=== PATIENT | male | born 1950 | race Caucasian/White ===

== ENCOUNTER → 2023-05-23 13:25 | Outpatient (CLI) | payer MEDICARE, OTHER, SELFPAY ==
--- NOTE | 2023-05-23 13:28 | DI.US.S_ITS ---
PROCEDURE: US ABDOMEN LIMITED INDICATIONS: Right Inguinal pain TECHNIQUE: Real-time focused scanning was performed of the abdomen, with image documentation. COMPARISON: None. FINDINGS: Focused ultrasound examination of right lower quadrant abdomen/inguinal region shows surgical mesh at the site of prior inguinal hernia repair. There is a small hernia involving right lower quadrant abdominal wall immediately superior to the surgical mesh measures 7.1 cm in with. Suggestion of bowel loops seen extending into herniation sac and is compressible. IMPRESSION: Prior inguinal hernia repair. Anterior abdominal wall defect immediately above the site of hernia repair with herniation sac containing bowel loops and mesenteric fat. No gross peritoneal free fluid. No discrete soft tissue mass. Dictated by: Figueroa Mo M.D. on 05/23/2023 at 16:51 Approved by: Figueroa Mo M.D. on 05/23/2023 at 16:53
== END ==
PROVIDERS: Family Provider Specialist; PCP Family Medicine; Referring Provider Physician Assistant; Visit Provider Physician Assistant
DX: K43.2 Incisional hernia without obstruction or gangrene (principal); R10.31 Right lower quadrant pain; Z87.19 Personal history of other diseases of the digestive system; Z98.890 Other specified postprocedural states
CPT/HCPCS: 76705

== ENCOUNTER 2023-07-03 07:36 | Day surgery (SDC) | payer MEDICARE, OTHER, SELFPAY ==
[2023-06-27 12:02] VITALS: BMI 22.7
[2023-07-03] VITALS (9 sets, daily range): BP systolic 112–144; BP diastolic 53–69; PULSE 54–65; RESP 12–18; TEMP 36.3–36.9; O2SAT 96–99; BMI 22.1
[2023-07-03] MEDS: LACTATED RINGERS 1,000 ML 42 ML IV (08:36)
--- NOTE | 2023-07-03 08:44 | PM.PREOP ---
Pre-operative Note COVID-19 COVID-19 status: Not tested Interval Note History & Physical reviewed/Exam performed by Physician: Yes Changes to H&P: No ASA Class (for procedural sedation): II
[2023-07-03] MEDS: CEFAZOLIN 2 GM/100 ML PREMIX 100 ML IV (09:27)
--- NOTE | 2023-07-03 09:36 | SUR.OPER ---
Supine on padded OR bed, head on pillow, arms padded and tucked at sides, legs uncrossed, safety belt at thigh, tape over blanket over lower legs .
[2023-07-03] MEDS: BUPIVACAINE 0.5% (PF) 30 ML, EPINEPHrine 0.15 MG INJ (09:52)
--- NOTE | 2023-07-03 10:39 | PM.OP.1 ---
Operative Date/Time/Diagnoses Date of procedure: 07/03/23 Time of procedure: 10:39 Pre-op diagnosis: Recurrent right inguinal hernia Post-op diagnosis: same Procedure & Clinicians Procedure: Laparoscopic recurrent right inguinal hernia repair with mesh Same procedure as scheduled: Yes Surgeon: Doron Gibson Anesthesia Type: General Operative Notes Procedure in detail: The patient was given preoperative antibiotics. The patient was brought to the operating room, placed on the table in the supine position with the arms tucked and general anesthesia was induced. The abdomen was prepped and draped in the usual fashion. A time-out was performed. A 1 cm supraumbilical incision was created and dissection was carried down to the anterior sheath. The fascia was scored transversely with cautery. The inferior leaf of the fascia was grasped with a Senait clamp to elevate abdominal wall and a Peon clamp was used to dawkins the peritoneum. The Lucretia port was placed and the abdomen was insufflated to 15 mmHg. The camera was inserted, there was no evidence of any injury from the entry. There was a mesh plug visible in the right direct space. 5 mm ports were placed under direct vision in the mid left and mid right abdomen. The patient was positioned in steep Trendelenburg. We created right peritoneal flap. The peritoneum was dissected off the right cord structures and from the mesh. This did result in a rather large defect in the peritoneal flap over the mesh. A large right Bard mesh was brought in and placed over the defect with the medial edge against Vini's ligament. We then closed the peritoneal flap with a running 3-0 barbed suture taking care to incorporate the large defect that had been over the old plug. We took one last look around the abdomen and saw no other abnormalities. The suture was removed and accounted for. The 5 mm ports were removed under direct vision. The abdomen was desufflated. The Lucretia port was removed. Additional local was injected into the fascia and the fascial incision was closed with 2 interrupted 0 Vicryl sutures. The skin incisions were closed with 4 Monocryl, Steri-Strips and Band-Aids. Post-operative Condition: stable Disposition: PACU
[2023-07-03] MEDS: ACETAMINOPHEN IV 1,000 MG/100 ML VIAL 400 MG IV (10:56)
[2023-07-03] MEDS: ONDANSETRON 4 MG/2 ML INJ IV (10:59)
[2023-07-03] MEDS: HYDROMORPHONE 1 MG INJ IV (11:07)
[2023-07-03] MEDS: OXYCODONE IR 5 MG TABLET PO (11:16)
== END 2023-07-03 12:05 | disposition home or self-care (01) ==
PROVIDERS: Family Provider Specialist; PCP Family Medicine; Referring Provider Surgery; Visit Provider Surgery
PROC: 0YQ54ZZ Repair Right Inguinal Region, Percutaneous Endoscopic Approach (ICD-10-PCS; CPT 49651; principal; 2023-07-03 09:15)
DX: K40.91 Unilateral inguinal hernia, without obstruction or gangrene, recurrent (principal)
CPT/HCPCS: 49651; J0136; J0171; J0690; J1100; J1170; J2405; J2704; J3010

== ENCOUNTER → 2023-09-19 10:51 | Outpatient (CLI) | payer MEDICARE, OTHER, SELFPAY ==
--- NOTE | 2023-09-19 10:52 | DI.CT.S_ITS ---
PROCEDURE: CT ABDOMEN PELVIS WO CON INDICATIONS: right groin pain s/p bilateral inguinal hernia repair TECHNIQUE: Axial sections were acquired from the lung bases to the pubic symphysis. Coronal and sagittal reformats were performed. For radiation dose reduction, the following was used: automated exposure control, adjustment of mA and/or kV according to patient size. COMPARISON: [facility], , ABDOMEN LIMITED, 05/23/2023, 13:50. FINDINGS: Image quality: Diagnostic. Lower Chest: No significant findings. URINARY: Right Kidney: No stones or hydronephrosis. Right Ureter: No hydroureter. Left Kidney: No stones or hydronephrosis. Left Ureter: No hydroureter. Bladder: Decompressed. No stones. ABDOMEN: Liver: No contour-deforming solid mass. Gallbladder: Decompressed. No stones. Biliary ducts: No biliary dilation. Pancreas: No ductal dilation. Spleen: Size is within normal limits. Adrenal Glands: No adrenal nodules. Stomach and Bowel: Normal colonic caliber, without significant wall thickening. Diverticulosis. Normal appendix. Peritoneum: No abnormal intraperitoneal fluid. No free air. Ventral Wall: Question tiny fat containing periumbilical hernia. Abdominal Nodes: No enlarged retroperitoneal or mesenteric lymph nodes. Vessels: Aorta and inferior vena cava are normal in size. Mild to moderate calcified plaque. PELVIS: Pelvic Organs: Unremarkable. Pelvic Nodes: Unremarkable. Miscellaneous: Stranding in near the inguinal canals, right greater than left. Probable mesh on the right. The urinary bladder is in close proximity to the right inguinal canal. The possible adhesion near the small bowel in the right lower quadrant, (4/17). No fluid collection. Bones: No suspicious osseous lesion. L4 Schmorl's node. IMPRESSION: 1. Right inguinal hernia repair with mesh. Mild stranding which is felt to be postsurgical in nature. Possible adhesion to the small bowel in the right lower quadrant. The bladder is also in close proximity to the repair site. No fluid collection. 2. Diverticulosis. No diverticulitis. 3. No kidney stones. No hydronephrosis. Dictated by: Ravinder Marie M.D. on 09/19/2023 at 11:50 Approved by: Ravinder Marie M.D. on 09/19/2023 at 12:05
== END ==
LOC: CT 10:52
PROVIDERS: Family Provider Specialist; PCP Family Medicine; Referring Provider Anesthesiology; Visit Provider Anesthesiology
DX: R10.31 Right lower quadrant pain (principal); G62.9 Polyneuropathy, unspecified; K57.90 Diverticulosis of intestine, part unspecified, without perforation or abscess without bleeding
CPT/HCPCS: 74176